=== PATIENT | female | born 1970 | race Two or more races ===

== ENCOUNTER → 2018-12-28 | Outpatient (CLI) | payer BC ==
[~2018-12-28] MED LIST: PANT20TA2 PO
--- NOTE | 2018-12-28 09:11 | RAD ---
CLINICAL HISTORY: DX: Generalized Abd Pain IMP: Fatty Liver- Pancreas not seen- Midline Bowel Gas- Otherwise normal COMPARISON: None available. TECHNIQUE: Ultrasound of the upper abdomen was performed. FINDINGS: The liver measures 15.5 cm in length in the right mid clavicular line. Hepatic margin is smooth. Increased echogenicity suggest fatty liver.. There are no focal liver lesions. Flow is identified in the hepatic veins and portal veins with normal waveforms. The gallbladder is normal in appearance without evidence for cholelithiasis. There is no wall thickening or pericholecystic fluid. There is no pain with direct transducer pressure over the gallbladder. The common bile duct measures 0.2 cm. The spleen is normal in size. It measures 8.6 cm. The majority of the pancreas is obscured by intestinal gas.. The right kidney measures 10.2 cm in bipolar length. The left kidney measures 10.8 cm in bipolar length. No focal renal lesion or hydronephrosis. Grossly normal renal cortical thickness and echogenicity. Visualized portions of the abdominal aorta and inferior vena cava are unremarkable. There is no free fluid in the upper abdomen. IMPRESSION: Increased echogenicity of the liver likely fatty liver. Electronically signed by: Jason Mckeon MD (12/28/2018 9:08 AM) [facility]
--- NOTE | 2018-12-29 08:02 | RAD ---
DATE: 12/28/2018 11:00 AM EXAM: MAMMO LUNA SCREENING BILATERAL HISTORY: routine screening evaluation-Baseline COMPARISON: None available Bilateral CC and MLO views of the breasts were performed. Bilateral breast tomosynthesis was performed in CC and MLO projections. This study was interpreted with the benefit of Computerized Aided Detection (CAD ). Breast Density: The breast parenchyma shows scattered fibroglandular densities. Breast parenchyma level B. FINDINGS: Benign calcifications are present. A focal asymmetry is seen in the slightly lateral, superior right breast for which additional imaging evaluation is recommended. Otherwise no suspicious masses, microcalcifications or architectural distortion is present. The visualized axillae are unremarkable. IMPRESSION: Right breast focal asymmetry, findings for which additional imaging is advised. BI-RADS CATEGORY: 0 INCOMPLETE: NEEDS ADDITIONAL IMAGING EVALUATION AND/OR PRIOR MAMMOGRAMS FOR COMPARISON. RECOMMENDED FOLLOW-UP: ADD ADDITIONAL IMAGING right breast focal asymmetry for which additional imaging is recommended to include spot compression views in the CC and MLO view and likely ultrasound. PQRS compliance statement: Patient information was entered into a reminder system with a target due date-immediate recall for the diagnostic imaging. Mammography is a sensitive method for finding small breast cancers, but it does not detect them all and is not a substitute for careful clinical examination. A negative mammogram does not negate a clinically suspicious finding and should not result in delay in biopsying a clinically suspicious abnormality. "Our facility is accredited by the [employer] Mammography Program." MTDD
== END | disposition home or self-care (01) ==
LOC: US 08:11
PROVIDERS: ATTEND Family Medicine
DX: Z12.31 Encounter for screening mammogram for malignant neoplasm of breast (principal); N64.89 Other specified disorders of breast; R10.84 Generalized abdominal pain
CPT/HCPCS: 76700; 77063; 77067

== ENCOUNTER → 2019-01-12 | Outpatient (CLI) | payer BC ==
--- NOTE | 2019-01-12 14:41 | RAD ---
DATE: 01/12/2019 EXAM: DIGITAL DIAGNOSTIC RT HISTORY: Callback for right breast abnormality seen on recent mammogram. COMPARISON: Previous screening mammogram from 12/28/2018 This study was interpreted with the benefit of Computerized Aided Detection (CAD). FINDINGS: Breast Density: SCATTERED The breast parenchyma shows scattered fibroglandular densities. Breast parenchyma level B. The spot compression views of the right outer and upper breast in CC and MLO projection demonstrates no masslike lesion. No suspicious ossifications. IMPRESSION: Right breast abnormality seen on previous mammogram likely overlapping fibroglandular tissue. Please see report on ultrasound on the same day. BI-RADS CATEGORY: 3 PROBABLE BENIGN FINDING(S-SHORT INTERVAL FOLLOW-UP SUGGESTED RECOMMENDED FOLLOW-UP: 6M 6 MONTH FOLLOW-UP. Right breast ultrasound in 6 months recommended. PQRS compliance statement: Patient information was entered into a reminder system with a target due date for the next mammogram. Mammography is a sensitive method for finding small breast cancers, but it does not detect them all and is not a substitute for careful clinical examination. A negative mammogram does not negate a clinically suspicious finding and should not result in delay in biopsying a clinically suspicious abnormality. "Our facility is accredited by the [employer] Mammography [employer]."
--- NOTE | 2019-01-12 14:43 | RAD ---
Indication: Callback. Technique: Limited right outer breast ultrasound. Comparison: Most recent screening and diagnostic mammogram. Findings: There is an hypoechoic lesion at 7:00 position approximately 2 cm from the nipple measuring 0.3 x 0.3 x 0.2 cm without internal vascularity or posterior shadowing. The margins are lobulated. At 9:30 position approximately 10 cm from the nipple there is a 0.9 x 0.6 x 0.4 cm normal appearing lymph node. Impression: Incidental note made of lesion which does not correspond to mammographically seen abnormality. BI-RADS 3: Probably benign. Follow-up 6 month ultrasound of the right breast recommended.
== END | disposition home or self-care (01) ==
LOC: MAMMO 13:13
PROVIDERS: ATTEND Family Medicine
DX: N64.89 Other specified disorders of breast (principal)
CPT/HCPCS: 76641; 77065

== ENCOUNTER → 2019-02-18 | Day surgery (SDC) | payer BC ==
[~2019-02-18] MED LIST changes: +HYDROmorphone 2 MG/ML VIAL IV PRN; +IV RINGERS,LACTATED 1000ML 1,000 ML IV SCH; +LIDOCAINE 2% PF 5 ML VIAL. ONE; +MORPHINE SULFATE 2 MG/ML VIAL. IV PRN; +ONDANSETRON PF 4 MG/2 ML VIAL. IV PRN; +PROCHLORPERAZINE 10 MG/2 ML VIAL. IV PRN; +PROPOFOL 20 ML IV ONE; +fentaNYL PF VIAL 100 MCG/2 ML VIAL IV PRN
[2019-02-18 09:50] VITALS: BP 106/69
== END | disposition home or self-care (01) ==
LOC: ENDOS 07:45
PROVIDERS: ATTEND Internal Medicine Gastroenterology
DX: Z12.11 Encounter for screening for malignant neoplasm of colon (principal); K64.0 First degree hemorrhoids; Z82.49 Family history of ischemic heart disease and other diseases of the circulatory system; Z72.89 Other problems related to lifestyle; Z79.899 Other long term (current) drug therapy; K21.9 Gastro-esophageal reflux disease without esophagitis; Z87.19 Personal history of other diseases of the digestive system
CPT/HCPCS: 45378; J2001; J2704